=== PATIENT | female | born 1955 | race Caucasian/White ===

== ENCOUNTER 2017-05-09 15:09 | Observation (INO) ==
--- NOTE | 2017-05-09 15:19 | Emergency Department Note ---
Disposition Clinical Impression: Chest pain Qualifiers: Chest pain type: unspecified Qualified Code(s): R07.9 - Chest pain, unspecified Disposition: Admitted As Inpatient Condition: Undetermined Referrals: Lakia Narayanan MD [Primary Care Provider] - Forms: ED Satisfaction Letter, Work/School Release Time of Disposition: 17:18 General Adult HPI - General Chief complaint: ED General Medical Stated complaint: multiple complaints Time Seen by Provider: 05/09/17 15:14 Source: patient, EMS Mode of arrival: EMS Limitations: no limitations Nursing Notes Reviewed: Yes Vital Signs Reviewed: Yes - History of Present Illness HPI Narrative: 61-year-old female with multiple complaints here in the emergency department. The patient states that she is having pain all over, she is having pain in her right upper quadrant epigastrium where she is complaining of a tightness under her right breast. The patient denies any shortness of breath, fevers but does admit to chills. The patient states that her legs hurt, her shoulder hurts, her back hurts. In addition the patient has multiple complaints about many different body systems since an urgent care visit 3 or 4 days ago. The patient is currently seeking a new primary care physician after being dropped from her previous PCP. The patient denies any other complaints at this time. She is resting comfortably in the room with mild elevated blood pressure. She denies any headaches, unilateral weakness. The patient states that she has been fairly tachypneic and stating that she is having some numbness and tingling in bilateral hands. Onset (ago): day(s) (4) Location: other (generalized) Pain Severity: mild Pain Scale: 2 Quality: aching Improves with: nothing Worsens with: nothing Associated symptoms: Reports: chest pain, malaise, nausea/vomiting, weakness Treatments Prior to Arrival: none - Related Data Home Medications Medication Instructions Recorded Confirmed Sulfamethoxazole/Trimeth DS 1 each PO BID 05/09/17 05/09/17 [Bactrim DS] hydroCHLOROthiazide 25 mg PO QAM 05/09/17 05/09/17 [Hydrochlorothiazide] Allergies Allergy/AdvReac Type Severity Reaction Status Date / Time acetaminophen [From Lortab] Allergy Dizziness Verified 11/18/15 16:32 hydrocodone [From Lortab] Allergy Dizziness Verified 11/18/15 16:32 levofloxacin [From Levaquin] Allergy Dizziness Verified 11/18/15 16:32 All systems ED: reviewed and negative except as stated. Constitutional: Reports: chills, weakness. Denies: fever ENT ED: Denies: congestion Cardiovascular: Reports: chest pain. Denies: dyspnea on exertion, edema Respiratory: Reports: dyspnea. Denies: cough, wheezes Gastrointestinal: Reports: abdominal pain. Denies: nausea, vomiting, diarrhea, constipation Genitourinary: Denies: urgency, dysuria Musculoskeletal: Reports: back pain, myalgia. Denies: neck pain, arthralgia Integumentary: Denies: rash Neurological: Reports: weakness. Denies: headache, numbness, paresthesias, confusion Past Medical History - Past Medical History Attestation: Yes The following information was validated with the patient. Source: patient Medical history: Reports: no medical history Surgical history: Reports: non-contributory - Social History Smoking Status: Current every day smoker Smokeless Tobacco Status: No Alcohol use: Reports: none Drug use: Reports: none Physical Exam - General Limitations: no limitations General appearance: alert, in no apparent distress - Head Head exam: atraumatic, normocephalic, normal inspection - Eye Eye exam: Present: normal appearance - ENT ENT exam: normal exam, normal oropharynx, mucous membranes moist - Neck Neck exam: Present: normal inspection, full ROM, trachea midline - Chest Chest inspection: Present: normal inspection, symmetric chest wall rise - Respiratory Respiratory exam: Present: normal lung sounds bilaterally - Cardiovascular Cardiovascular exam: Present: regular rate, normal rhythm, normal heart sounds - Abdominal Exam Abdominal exam: Present: soft, tenderness (Epigastric). Absent: distention, guarding, rebound, rigidity - Extremities Exam Extremities exam: Present: normal inspection, full ROM. Absent: tenderness, pedal edema - Neurological Exam Neurological exam: Present: alert, oriented X3, CN II-XII intact - Expanded Neurological Exam Patient oriented to: Present: person, place, time Speech: Present: fluid speech Cranial nerves: EOM function (II, III, IV, ): Normal, facial sensation (V): Normal, facial palsy (VII): Normal Motor strength - LUE: 5/5 Motor strength - RUE: 5/5 Motor strength - LLE: 5/5 Motor strength - RLE: 5/5 Sensory exam upper extremity: light touch: Normal Sensory exam lower extremity: light touch: Normal Coma Scale Eye Opening: Spontaneous Coma Scale Motor Response: Obeys Commands Coma Scale Verbal Response: Oriented Coma Scale Total: 15 Course - Reevaluation(s) Reevaluation #1: Patient's EKG demonstrated some ST depression noted in the lateral leads. She had nonspecific changes overall. 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 Labs demonstrate a mildly elevated d-dimer but is negative for her age with the 10 times her age role. We will not perform a CTA of the patient's chest. The patient does have some elevated transaminases and is complaining of epigastric tenderness. So we will perform a CT of the patient's abdomen and pelvis with noncontrast. The patient was also noted to be hypokalemic so we will administer IV potassium. This is likely the etiology of her myalgias. Time: 16:11 Vital Signs Temperature 97.8 F 05/09/17 15:15 Pulse Rate 80 05/09/17 15:15 Respiratory Rate 14 05/09/17 15:15 Blood Pressure 0/0 05/09/17 15:15 O2 Sat by Pulse Oximetry 98 05/09/17 15:15 Temperature 97.8 F 05/09/17 15:15 Pulse Rate 85 05/09/17 15:56 Respiratory Rate 13 05/09/17 15:56 Blood Pressure 147/76 05/09/17 15:56 O2 Sat by Pulse Oximetry 95 05/09/17 15:56 Oxygen Delivery Oxygen Delivery Room Air Medical Decision Making - [facility] Narrative Medical decision making narrative: Patient has severe hepatosis. We will admit the patient to the hospitalist at this time, accepted by Dr. Tyler. - Lab Data Lab results reviewed: Yes I reviewed the patient's lab results. Result diagrams: 05/09/17 15:33 05/09/17 15:33 Lab Results 05/09/17 05/09/17 05/09/17 Range/Units 15:25 15:33 15:33 WBC 8.5 (4.3-11.1) K/mcL RBC 5.58 H (3.82-4.97) M/mcL Hgb 16.2 H (11.5-15.4) g/dL Hct 47.3 H (35.3-44.9) % MCV 84.8 (83.0-100.0) fL MCH 29.0 (28.0-33.3) pg MCHC 34.2 (31.6-35.5) g/dL RDW 14.3 (11.5-14.5) % Plt Count 269 (140-400) K/mcL MPV 11.4 (9.4-12.4) fL Immature Gran % 0.4 (0-4) % Seg Neutrophils % 48.1 % Lymphocytes % 38.8 % Monocytes % 8.5 % Eosinophils % 3.4 % Basophils % 0.8 % Neutrophils # 4.1 (1.6-8.9) K/mcL Lymphocytes # 3.3 (0.6-4.6) K/mcL Monocytes # 0.7 (0.0-1.3) K/mcL Eosinophils # 0.3 (0.0-0.6) K/mcL Basophils # 0.1 (0.0-0.2) K/mcL D-Dimer (0-500) ng/mLFEU Sodium (136-145) mEq/L Potassium (3.5-4.5) mEq/L Chloride (98-109) mEq/L Carbon Dioxide (19-29) mEq/L BUN (7-20) mg/dL Creatinine (0.57-1.11) mg/dL Est GFR ( Amer) (> 60) Est GFR (Non-Af Amer) (> 60) BUN/Creatinine Ratio (6-26) Glucose (70-99) mg/dL Calculated Osmolality (280-300) Calcium (8.6-10.8) mg/dL Total Bilirubin (0.2-1.2) mg/dL AST (5-34) Units/L ALT (0-55) Units/L Alkaline Phosphatase (38-126) Units/L Troponin I 0.02 (0-0.03) ng/mL Serum Total Protein (6.0-8.3) g/dL Albumin (3.5-5.0) g/dL Globulin (2.4-3.5) g/dL Albumin/Globulin Ratio (1.1-2.2) Urine Color Yellow (Yellow) Urine Clarity Clear (Clear) Urine pH 6.0 (5.0-8.0) pH Units Ur Specific [place] 1.014 (1.010-1.025) Urine Protein Negative (Neg-Trace) mg/dL Urine Glucose (UA) Normal (Normal) mg/dL Urine Ketones Trace H (Negative) mg/dL Urine Blood Small H (Negative) Urine Nitrite Negative (Negative) Urine Bilirubin Negative (Negative) Urine Urobilinogen Normal (Normal) mg/dL Ur Leukocyte Esterase Negative (Negative) Urine Microscopic RBC 0-3 (0-3) per hpf Urine Microscopic WBC 0-3 (0-3) per hpf Ur Squamous Epith Cells Moderate H (None-Few) per lpf Urine Bacteria None Seen (None-Few) per hpf Hyaline Casts None Seen (None-Few) per lpf Ur Culture Indicated? NO (NO) 05/09/17 05/09/17 Range/Units 15:33 15:33 WBC (4.3-11.1) K/mcL RBC (3.82-4.97) M/mcL Hgb (11.5-15.4) g/dL Hct (35.3-44.9) % MCV (83.0-100.0) fL MCH (28.0-33.3) pg MCHC (31.6-35.5) g/dL RDW (11.5-14.5) % Plt Count (140-400) K/mcL MPV (9.4-12.4) fL Immature Gran % (0-4) % Seg Neutrophils % % Lymphocytes % % Monocytes % % Eosinophils % % Basophils % % Neutrophils # (1.6-8.9) K/mcL Lymphocytes # (0.6-4.6) K/mcL Monocytes # (0.0-1.3) K/mcL Eosinophils # (0.0-0.6) K/mcL Basophils # (0.0-0.2) K/mcL D-Dimer 576 H (0-500) ng/mLFEU Sodium 134 L (136-145) mEq/L Potassium 2.9 L (3.5-4.5) mEq/L Chloride 95 L (98-109) mEq/L Carbon Dioxide 26 (19-29) mEq/L BUN 11 (7-20) mg/dL Creatinine 1.01 (0.57-1.11) mg/dL Est GFR ( Amer) > 60 (> 60) Est GFR (Non-Af Amer) 56 L (> 60) BUN/Creatinine Ratio 11 (6-26) Glucose 95 (70-99) mg/dL Calculated Osmolality 277 L (280-300) Calcium 9.8 (8.6-10.8) mg/dL Total Bilirubin 0.5 (0.2-1.2) mg/dL AST 51 H (5-34) Units/L ALT 66 H (0-55) Units/L Alkaline Phosphatase 102 (38-126) Units/L Troponin I (0-0.03) ng/mL Serum Total Protein 7.9 (6.0-8.3) g/dL Albumin 3.8 (3.5-5.0) g/dL Globulin 4.1 H (2.4-3.5) g/dL Albumin/Globulin Ratio 0.9 L (1.1-2.2) Urine Color (Yellow) Urine Clarity (Clear) Urine pH (5.0-8.0) pH Units Ur Specific [place] (1.010-1.025) Urine Protein (Neg-Trace) mg/dL Urine Glucose (UA) (Normal) mg/dL Urine Ketones (Negative) mg/dL Urine Blood (Negative) Urine Nitrite (Negative) Urine Bilirubin (Negative) Urine Urobilinogen (Normal) mg/dL Ur Leukocyte Esterase (Negative) Urine Microscopic RBC (0-3) per hpf Urine Microscopic WBC (0-3) per hpf Ur Squamous Epith Cells (None-Few) per lpf Urine Bacteria (None-Few) per hpf Hyaline Casts (None-Few) per lpf Ur Culture Indicated? (NO) - Radiology Data Radiology results reviewed: Yes I reviewed the patient's radiology results. - EKG Data EKG #1 EKG attestation: Yes I reviewed and interpreted this EKG. EKG results narrative: Heart rate 76 bpm. PA interval 142 ms. QTC 434 ms. Normal sinus rhythm. No ST elevation but noted ST depression noted in leads aVF, V4, V3, V6. She has flipped T waves that are new on leads V1, V2, V3 through V6. In addition the patient has some nonspecific ST changes throughout.
[2017-05-09 15:40] LABS: Bilirubin,Urine Negative (Negative); Blood,Urine Small (Negative); Clarity,Urine Clear (Clear); Color,Urine Yellow (Yellow); Glucose,Urine (UA) Normal (Normal); Ketones,Urine Trace mg/dL (Negative); Leukocyte Esterase,Urine Negative (Negative); Nitrite,Urine Negative (Negative); Protein,Urine Negative (Neg-Trace); Specific Gravity,Urine 1.014 (1.010-1.025); Urobilinogen,Urine Normal (Normal)
[2017-05-09] MEDS ORDERED: Aspirin 325 MG TABLET PO ONE (15:40)
[2017-05-09 15:42] LABS: Bacteria,Urine None Seen per hpf (None-Few); Hyaline Casts,Urine None Seen per lpf (None-Few); RBC,Urine 0-3 per hpf (0-3); Squamous Epithelial Cell,Urine Moderate per lpf (None-Few); WBC,Urine 0-3 per hpf (0-3)
[2017-05-09] MEDS ORDERED: 0.9 % Sodium Chloride 1,000 ML IVC ONE (15:44)
[2017-05-09 15:49] LABS: Basophils # 0.1 K/mcL (0.0-0.2); Basophils % 0.8 %; Eosinophils # 0.3 K/mcL (0.0-0.6); Eosinophils % 3.4 %; Hematocrit 47.3 % (35.3-44.9); Hemoglobin 16.2 g/dL (11.5-15.4); Immature Granulocytes % 0.4 % (0-4); Lymphocytes # 3.3 K/mcL (0.6-4.6); Lymphocytes % 38.8 %; Mean Corpuscular HGB Conc 34.2 g/dL (31.6-35.5); Mean Corpuscular Volume 84.8 fL (83.0-100.0); Mean Platelet Volume 11.4 fL (9.4-12.4); Monocytes # 0.7 K/mcL (0.0-1.3); Monocytes % 8.5 %; Neutrophils # 4.1 K/mcL (1.6-8.9); Red Blood Count 5.58 M/mcL (3.82-4.97); Red Cell Distribution Width 14.3 % (11.5-14.5); Segmented Neutrophils % 48.1 %
[2017-05-09 15:59] LABS: Alanine Aminotransferase 66 Units/L (0-55); Albumin 3.8 g/dL (3.5-5.0); Albumin/Globulin Ratio 0.9 (1.1-2.2); Alkaline Phosphatase 102 Units/L (38-126); Aspartate Amino Transferase 51 Units/L (5-34); BUN/Creatinine Ratio 11 (6-26); Bilirubin,Total 0.5 mg/dL (0.2-1.2); Blood Urea Nitrogen 11 mg/dL (7-20); Calcium 9.8 mg/dL (8.6-10.8); Carbon Dioxide 26 mEq/L (19-29); Chloride 95 mEq/L (98-109); Globulin 4.1 g/dL (2.4-3.5); Glucose 95 mg/dL (70-99); Osmolality,Calculated 277 (280-300); Potassium 2.9 mEq/L (3.5-4.5); Sodium 134 mEq/L (136-145); Total Protein 7.9 g/dL (6.0-8.3); eGFR For African Americans > 60 (> 60); eGFR For Non-African Americans 56 (> 60)
[2017-05-09 16:36] LABS: Platelet Count 269 K/mcL (140-400)
--- NOTE | 2017-05-09 17:23 | Emergency Department Note ---
START Narrative - START START: I examined this patient and my medical decision-making was reviewed with the Resident Physician. I agree with the documented findings, disposition and treatment plan as described except to the extent set forth below. 61-year-old female presents emergency room for chest pressure and multiple complaints. Workup here revealed some ST segment and T-wave abnormalities in the anterior lateral leads as compared to previous. She has been to having this chest pressure on and off. Her CT scan of her abdomen pelvis is nonacute and she was having some upper abdominal pain and pressure. Plan at this time is to admit for observation secondary to the EKG abnormalities of which could be causing her to have this chest pressure.
[2017-05-09] MEDS ORDERED: 0.9 % Sodium Chloride 1,000 ML ONE ×2 (18:29→20:58)
[2017-05-09] MEDS ORDERED: Naloxone 0.4 MG/ML INJ IVP PRN (23:02)
--- NOTE | 2017-05-09 23:11 | Internal Med History&Physical ---
Date of Encounter: 05/09/17 Time of Encounter: 23:06 Assessment and Plan (1) Atypical chest pain Current visit: Yes Status: Acute trend trop, check TTE does not sound like ACS given related to movement tele, will monitor closely further management pending hospital course (2) Generalized edema Current visit: Yes Status: Acute uncertain etiology check TTE send spot Protein/cr screen check TSH, FT4 (3) Hypokalemia Current visit: Yes Status: Acute K IV supplementation likely 2/2 diuretics check Mg Internal Medicine - H&P: HPI Chief complaint: CP, swelling History of present illness: Ms. Magaña is a 61 year old female who presents for eval for generalized swelling and CP. She tells me that she had been having swelling in her legs, abdo and chest for the last 1 week. This LE swelling is associated with pins/needles/burning of the feet. She was seen at urgent care on sunday where she was prescribed HCTZ and bactrim for empiric UTI therapy ? - has frequency and LUTs that appears chronic. Today, she was sitting in bed and attempted to bend over leading to sharp , "grabbing pain" along the left chest w/o radiation. 11/04, described as sharp lasting minutes. She recalled feeling pre-syncopal and got "real jittery" before onset of CP. Review noted of back pain , trouble sleeping. She has a 42 year smoking hx and has quit smoking 8 days ago. EKG personally reviewed with rate 76, NSR, T-wave flattening CT/CT abd pelvis wo no iv no oral IMPRESSION: No acute intra-abdominal pathology. Severe hepatic steatosis. Colonic diverticulosis, without CT evidence of acute diverticulitis. Appendix is not identified. No secondary CT evidence of acute appendicitis. XR/XR chest 1V portable IMPRESSION: No acute process. Past Med Surg Social Fam HX - Past Medical History Medical history: no medical history Psychiatric history: no psych history - Past Surgical History Surgical History: non-contributory - Social History Smoking Status: Current every day smoker Smokeless Tobacco Status: No Alcohol use: none Drug use: none - Family History Mother Living Status: Cause of : CA Hx Family Cancer: Yes (BREAST) Hx Family Endocrine Disorder: Yes (DM) Internal Medicine - H&P: Meds Sulfamethoxazole/Trimeth DS [Bactrim DS] 1 each PO BID 05/09/17 [History] hydroCHLOROthiazide [Hydrochlorothiazide] 25 mg PO QAM 05/09/17 [History] 3 Allergy/AdvReac Type Severity Reaction Status Date / Time acetaminophen [From Lortab] Allergy Dizziness Verified 11/18/15 16:32 hydrocodone [From Lortab] Allergy Dizziness Verified 11/18/15 16:32 levofloxacin [From Levaquin] Allergy Dizziness Verified 11/18/15 16:32 All Systems PM: A 10-system review of systems was performed and is negative for pertinent findings except as documented above in the HPI. Review of systems: ROS 14 point review of systems reviewed as best as possible given presentation. Pertinent positive or negative as per HPI or otherwise reviewed as negative - Constitutional Vitals: Temp Pulse Resp BP Pulse Ox 98.6 F 71 16 136/77 93 05/09/17 22:46 05/09/17 22:46 05/09/17 22:46 05/09/17 22:46 05/09/17 22:46 Exam: General - AAO x 3 Psych - Appropriate affect/speech. No agitation Eyes - KAYLEE. Eye lids intact. No scleral icterus Neuro - No gross peripheral or central neuro deficitson inspecton Heart - Sinus. RRR. S1 and S2 present. No added HS/murmurs appreciated. No elevated JVD appreciated. Lung - Adequate air entry b/l, No crackles/wheezes appreciated GI - Soft, non-tender. No hepatosplenomegaly/ascites. BS+ - No CVA/suprapubic tenderness or palpable bladder distension Skin - Intact. No rash/petechiae/ecchymosis. Warm extremities. +1 b/l LE edema Internal Med - H&P Results - Labs CBC & Chem 7: 05/09/17 15:33 05/09/17 15:33
[2017-05-10 03:35] LABS: Creatinine,Urine 36 mg/dL
[2017-05-10 06:00] LABS: BUN/Creatinine Ratio 13 (6-26); Blood Urea Nitrogen 10 mg/dL (7-20); Carbon Dioxide 22 mEq/L (19-29); Chloride 108 mEq/L (98-109); Glucose 78 mg/dL (70-99); Magnesium 2.3 mg/dL (1.6-2.6); Osmolality,Calculated 286 (280-300); Sodium 139 mEq/L (136-145); eGFR For African Americans > 60 (> 60); eGFR For Non-African Americans > 60 (> 60)
[2017-05-10 06:02] LABS: Calcium 8.1 mg/dL (8.6-10.8)
[2017-05-10 06:03] LABS: Hemoglobin A1C 5.4 %; Potassium 3.9 mEq/L (3.5-4.5)
[2017-05-10 06:14] LABS: Basophils # 0.1 K/mcL (0.0-0.2); Basophils % 0.8 %; Eosinophils # 0.4 K/mcL (0.0-0.6); Immature Granulocytes % 0.3 % (0-4); Lymphocytes # 2.2 K/mcL (0.6-4.6); Lymphocytes % 36.4 %; Mean Corpuscular HGB Conc 32.7 g/dL (31.6-35.5); Mean Corpuscular Hemoglobin 28.6 pg (28.0-33.3); Mean Corpuscular Volume 87.5 fL (83.0-100.0); Mean Platelet Volume 10.6 fL (9.4-12.4); Monocytes # 0.7 K/mcL (0.0-1.3); Neutrophils # 2.7 K/mcL (1.6-8.9); Platelet Count 295 K/mcL (140-400); Red Blood Count 5.03 M/mcL (3.82-4.97); Red Cell Distribution Width 14.7 % (11.5-14.5); Segmented Neutrophils % 45.5 %
[2017-05-10 06:17] LABS: Hemoglobin 14.4 g/dL (11.5-15.4)
[2017-05-10 06:22] LABS: Thyroid Stimulating Hormone 2.075 mcIU/mL (0.350-4.840)
--- NOTE | 2017-05-10 13:51 | Internal Med Progress Note ---
Date of Encounter: 05/10/17 Time of Encounter: 08:30 - Assessment and plan (1) Vertigo Current Visit: Yes Status: Acute Assessment and plan: Patient reports episodes of room spinning and feeling as if she is going to pass out for 2-3 months prior to presentation. Symptoms occur with movement and at rest. 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 [facility] records requested but not yet received. Check orthostatics, echocardiogram, head/neck MRA. Consider neurology and/or ENT consult depending on clinical course. (2) Chest pain Current Visit: Yes Status: Acute Assessment and plan: Presented with episode of severe chest pain. Now resolved. Serial troponins negative. EKG without acute ST changes. Echo, stress test pending. Monitor on telemetry. D-dimer elevated, Chest CTA pending Qualifiers: Chest pain type: unspecified Qualified Code(s): R07.9 - Chest pain, unspecified (3) Generalized edema Current Visit: Yes Status: Acute Assessment and plan: Patient reports increased and worsening edema from chest to feet over the last week. No previous history of heart failure. Abdominal CT with severe hepatic steatosis. LFTs minimally elevated. Echo, liver ultrasound pending. (4) Hypokalemia Current Visit: Yes Status: Acute Assessment and plan: Likely secondary to GI losses as patient reports 2 days of loose, watery stool prior to presentation. Now resolved. Potassium replaced. Repeat potassium 3.9. Monitor repeat BMP - Subjective Interval history: Seen and examined at bedside. Patient is due to be, information obtained from chart review and patient report. Patient says she came in with concern for lower extremity swelling, chest pain and feeling as if she is going to pass out. Upon further investigation, patient reports sensation of the rooms pending as well as lightheadedness and dizziness. Says she has history of cerebral artery and was told she would need a stent at some point in time. Apparently had workup done at [facility]. Says vertigo, lightheadedness symptoms have been ongoing for the past couple months. Denies chest pain at this time, no shortness of breath. - Constitutional Vitals: Temp Pulse Resp BP Pulse Ox 97.9 F 80 16 125/55 92 05/10/17 11:11 05/10/17 11:11 05/10/17 11:11 05/10/17 11:11 05/10/17 11:11 General appearance: Present: A&O X 3, morbidly obese - Head Head exam: Present: atraumatic, normocephalic - Eye Eye exam: Present: PERRL, conjuntiva pink, sclera anicteric Pupils: Present: PERRL - Neck Neck exam general surgery: Present: supple, trachea midline. Absent: lymphadenopathy - Respiratory Respiratory exam: Present: CTAB. Absent: accessory muscle use, rales, rhonchi, wheezes - Cardiovascular Cardiovascular exam: Present: RRR, +S1, +S2. Absent: diastolic murmur, gallop, rubs, systolic murmur - GI/Abdominal GI/Abdominal exam: Present: normal bowel sounds, soft, no peritoneal signs. Absent: distended, tenderness - Extremities Exam Extremities exam: Present: warm, radial pulses palpable and symmetrical. Absent : calf tenderness, cyanotic, pedal edema - Neurological Exam Neurological exam: Present: CN II-XII intact, oriented X3, no focal deficits. Absent: pronater drift, facial droop, speech deficit - Skin Skin exam: Present: dry, intact Internal Medicine: Result - Labs CBC & Chem 7: 05/10/17 05:31 05/10/17 05:31 Labs: Short CBC 05/10/17 Range/Units 05:31 WBC 6.0 (4.3-11.1) K/mcL Hgb 14.4 D (11.5-15.4) g/dL Hct 44.0 (35.3-44.9) % Plt Count 295 (140-400) K/mcL Neutrophils # 2.7 (1.6-8.9) K/mcL BMP 05/10/17 05:31 Sodium 139 Potassium 3.9 D Chloride 108 Carbon Dioxide 22 BUN 10 Creatinine 0.76 Glucose 78 Calcium 8.1 L D Cardiac Enzymes 05/09/17 05/10/17 05/10/17 Range/Units 23:54 05:31 11:58 Troponin I 0.01 0.01 0.01 (0-0.03) ng/mL - ABG Interpretation ABG results: PT/INR, D-dimer D-Dimer 576 ng/mLFEU (0-500) H 05/09/17 15:33 - Impressions Impressions Echocardiogram 05/10/17 23:05 Impressions: LVEF 65%. Mild left ventricular diastolic dysfunction. Normal right ventricular structure and function. No significant valvular dysfunction. No pulmonary hypertension. Left Ventricular Wall Motion: Rest Echo Findings All wall segments showed normal motion. Findings: Study Quality * Technically adequate exam. ECG Findings * Normal sinus rhythm. Left Ventricle * Normal LV chamber size, wall thickness and function. * Mild left ventricular diastolic dysfunction. * LVEF 65%. Right Ventricle * Normal right ventricular structure and function. Left Atrium * Normal left atrial size. Right Atrium * Normal right atrial size. Aortic Valve * Aortic valve not well visualized. * No aortic regurgitation. * No aortic stenosis. Mitral Valve * Normal mitral valve structure. * No mitral regurgitation. * No mitral stenosis. Tricuspid Valve * Tricuspid valve not well visualized. * Trace tricuspid regurgitation. Pulmonic Valve * Pulmonic valve is not well visualized. * No pulmonic stenosis. * No pulmonic regurgitation. Pulmonary Artery * Pulmonary artery not well visualized. Aorta * Normally sized aortic root. Pericardium * There is no pericardial effusion present. Interatrial Septum * Interatrial septum not well evaluated. IVC * The IVC is not well evaluated. Consult Discharge Plan - Plan Referrals: Lakia Narayanan MD [Primary Care Provider] -
--- NOTE | 2017-05-10 16:39 | Electrocardiograph Report ---
[address] [address] Test Date: 2017-05-09 Pat Name: Margaret Magaña Department: 103 Room: 3B13 Gender: F Upper Shaper: NONA : 1955 Requested By: Rudi Acosta Order Number: [id number] Reading MD: Larissa Owen Measurements Intervals [place] Rate: 76 P: 28 TN: 142 QRS: 5 QRSD: 120 T: 51 QT: 404 QTc: 434 Interpretive Statements SINUS RHYTHM INTRAVENTRICULAR CONDUCTION DELAY ST DEVIATION AND MODERATE T-WAVE ABNORMALITY, CONSIDER ANTEROLATERAL ISCHEMIA ARTIFACT Electronically Signed On 05-10-2017 16:37:24 EST by Larissa Owen
[2017-05-10] MEDS: *HR* Heparin 5,000 UNIT/ML VIAL SQ SCH (21:41)
[2017-05-11 05:06] LABS: Basophils % 0.6 %; Eosinophils # 0.5 K/mcL (0.0-0.6); Eosinophils % 7.3 %; Hematocrit 46.2 % (35.3-44.9); Hemoglobin 14.8 g/dL (11.5-15.4); Immature Granulocytes % 0.4 % (0-4); Lymphocytes # 3.4 K/mcL (0.6-4.6); Lymphocytes % 48.8 %; Mean Corpuscular Hemoglobin 28.6 pg (28.0-33.3); Mean Corpuscular Volume 89.2 fL (83.0-100.0); Mean Platelet Volume 10.5 fL (9.4-12.4); Monocytes # 0.9 K/mcL (0.0-1.3); Monocytes % 12.2 %; Neutrophils # 2.2 K/mcL (1.6-8.9); Platelet Count 308 K/mcL (140-400); Red Blood Count 5.18 M/mcL (3.82-4.97); Segmented Neutrophils % 30.7 %
[2017-05-11 05:23] LABS: BUN/Creatinine Ratio 17 (6-26); Blood Urea Nitrogen 13 mg/dL (7-20); Carbon Dioxide 25 mEq/L (19-29); Chloride 108 mEq/L (98-109); Glucose 116 mg/dL (70-99); Magnesium 2.1 mg/dL (1.6-2.6); Osmolality,Calculated 291 (280-300); Sodium 140 mEq/L (136-145); eGFR For African Americans > 60 (> 60); eGFR For Non-African Americans > 60 (> 60)
[2017-05-11] MEDS: *HR* Heparin 5,000 UNIT/ML VIAL SQ SCH ×2 (05:37→14:19)
[2017-05-11] MEDS ORDERED: Regadenoson 0.4 MG/5 ML SYRINGE IVP ONE (06:25)
[2017-05-11 09:58] LABS: Albumin 3.4 g/dL (3.5-5.0); Albumin/Globulin Ratio 0.9 (1.1-2.2); Bilirubin,Direct 0.2 mg/dL (0.0-0.5); Bilirubin,Indirect 0.2 mg/dL (0.0-1.2); Bilirubin,Total 0.4 mg/dL (0.2-1.2); Globulin 3.8 g/dL (2.4-3.5); Total Protein 7.2 g/dL (6.0-8.3)
--- NOTE | 2017-05-11 10:14 | Gastroenterology Consult Note ---
Date of Encounter: 05/11/17 Time of Encounter: 09:35 - Assessment and plan (1) Hepatic steatosis Current Visit: Yes Status: Acute Assessment and plan: Abdominal CT completed and showed severe hepatic steatosis. RUQ US showed fatty liver vs diffuse hepatocellular disease. Bili is normal, and LFTs slightly elevated. Complete liver work up (AFP, alpha-1 antitrypsin, AMA, ANCA, ceruloplasmin, hepatic panel, F-actin, ferritin, hepatitis profile, AMA, PT/INR, and fibrosis score). Gradual weight loss of 7-10%. Moderate caloric restriction of 500-700 Kcal/day Eliminate or significantly reduce saturated fatty acids and high fructose corn syrup from diet Consider omega-3 fatty acids supplements Consider regular coffee consumption, 2-3 cups/day if can be tolerated Moderate exercise on treadmill, elliptical or in a pool, 4-5/week for 30-45 minutes. Resistance training 3 times/week Statins are safe to use, and also improve portal hypertension and decrease risk of HCC. Control of the components of metabolic syndrome (2) Elevated LFTs Current Visit: Yes Status: Acute Assessment and plan: LFTs are improving. AST 38 from 51 on admission. ALT 57 from 66 on admission. - Time Spent With Patient Total time spent is greater than 50% in coordination of care (as documented) at patient's floor/unit and/or counseling patient: GI History of Present Illness - Data of Consult Patient: new to practice Consult date: 05/11/17 Requesting Physician: Yaima Holcomb CNP - Consult Narrative Reason for consult: fatty liver vs diffuse hepatocellular disease History of present illness: Ms. Magaña is a 61 year old female who presented for evaluation of atypical chest pain and generalized swelling. Her chest pain worsens with movement, which has resolved since admssion. Serial troponins were negative. Abdominal CT completed and showed severe hepatic steatosis. We were consulted to evaluate her fatty liver vs diffuse hepatocellular disease. LFTs slightly elevated on admission with AST 51 and ALT 66. RUQ US showed fatty liver vs diffuse hepatocellular disease. She denies fever, chills, shortness of breath, abdominal pain, nausea, vomiting, melena, or hematochezia. She denies any alcohol use. Procedures: None NSAIDs: None Anticoagulation: None Past Med Surg Social Fam HX - Past Medical History Medical history: no medical history Psychiatric history: no psych history - Past Surgical History Surgical History: non-contributory - Social History Smoking Status: Current every day smoker Smokeless Tobacco Status: No Alcohol use: none Drug use: none - Family History Mother Living Status: Cause of : CA Hx Family Cancer: Yes (BREAST) Hx Family Endocrine Disorder: Yes (DM) - Gastrointestinal Gastrointestinal: Present: as per HPI - Constitutional Constitutional: as per HPI - EENT Eyes: as per HPI Ears: Present: as per HPI Nose, mouth and throat: Present: as per HPI - Cardiovascular Cardiovascular ROS: Present: as per HPI - Respiratory Respiratory IM: Present: as per HPI - Genitourinary Genitourinary: Absent: change in color, Urinary frequency - Neurological ROS Neurological GI: Present: as per HPI - Hematologic/Lymphatic Hematologic/Lymphatic pediatric: Present: as per HPI - Musculoskeletal Musculoskeletal ROS GI: Present: as per HPI - Integumentary Integumentary GI: Present: as per HPI - Psychiatric ROS Psychiatric GI: Present: as per HPI - Endocrine Endocrine IM: Present: as per HPI - Constitutional Vitals: Temp Pulse Resp BP Pulse Ox 97.8 F 74 16 144/69 92 05/11/17 08:54 05/11/17 08:54 05/11/17 08:54 05/11/17 08:54 05/11/17 08:54 General appearance: Present: cooperative, A&O X 3, no acute distress, answers questions appropriately - Head Head exam: Present: atraumatic, normocephalic - Eye Eye exam: Present: normal appearance, sclera anicteric - ENT ENT exam: Present: mucous membranes moist - Neck Neck exam general surgery: Present: normal inspection, trachea midline - Respiratory Respiratory exam: Present: CTAB. Absent: rales, rhonchi - Cardiovascular Cardiovascular exam: Present: RRR, +S1, +S2 - GI/Abdominal GI/Abdominal exam: Present: soft, no peritoneal signs. Absent: distended, firm , guarding, tenderness - Rectal Rectal exam: Present: deferred - Extremities Exam Extremities exam: Present: warm - Neurological Exam Neurological exam: Present: no focal deficits - Psychiatric Psychiatric exam: Present: normal affect, normal mood - Skin Skin exam: Present: dry, intact, normal color, warm Results - Labs CBC & Chem 7: 05/11/17 04:29 05/11/17 04:29 Labs: Last Result Calcium 9.0 mg/dL (8.6-10.8) 05/11/17 04:29 Troponin I 0.01 ng/mL (0-0.03) 05/10/17 11:58 Entire Visit Hgb 14.8 g/dL (11.5-15.4) 05/11/17 04:29 Hct 46.2 % (35.3-44.9) H 05/11/17 04:29 PT 11.0 Seconds (9.4-12.1) 05/11/17 09:27 Total Bilirubin 0.4 mg/dL (0.2-1.2) 05/11/17 09:27 AST 38 Units/L (5-34) H 05/11/17 09:27 ALT 57 Units/L (0-55) H 05/11/17 09:27 - ABG ABG results: PT/INR, D-dimer PT 11.0 Seconds (9.4-12.1) 05/11/17 09:27 D-Dimer 576 ng/mLFEU (0-500) H 05/09/17 15:33 - Impressions Impressions Brain MRI 05/10/17 13:47 IMPRESSION: Chronic occlusion of the left MCA. No acute infarct. Probable cavernoma within the right centrum semiovale. Left WEBBING SEAMER POUND NET branch vessel infundibulum versus microaneurysm. D/ / Rogers Salvador MD / Rogers Salvador MD Interpreting Provider: Rogers Salvador MD Head MRA 05/10/17 13:47 IMPRESSION: Chronic occlusion of the left MCA. No acute infarct. Probable cavernoma within the right centrum semiovale. Left WEBBING SEAMER POUND NET branch vessel infundibulum versus microaneurysm. D/ / Rogers Salvador MD / Rogers Salvador MD Interpreting Provider: Rogers Salvador MD Neck MRA 05/10/17 13:47 IMPRESSION: Chronic occlusion of the left MCA. No acute infarct. Probable cavernoma within the right centrum semiovale. Left WEBBING SEAMER POUND NET branch vessel infundibulum versus microaneurysm. D/ / Rogers Salvador MD / Rogers Salvador MD Interpreting Provider: Rogers Salvador MD Chest CTA 05/10/17 21:00 IMPRESSION: No evidence of pulmonary embolism or acute pulmonary abnormality. Fatty infiltration of liver. Rounded 1 cm density in the upper central right breast which could represent a benign fibroadenoma or cyst. Correlation with mammographic studies is recommended. Evidence granulomatous disease. 2 tiny noncalcified right lung nodules, larger 3 mm. See below recommendation. RECOMMENDATIONS: Fleischner Society guidelines for follow-up and management of incidentally detected pulmonary nodules: Multiple Solid Nodules: Nodule size less than 6 mm In a low-risk patient, no routine follow-up. In a high-risk patient, optional CT at 12 months. - Low risk patients include individuals with minimal or absent history of smoking and other known risk factors. - High risk patients include individuals with a history or smoking or known risk factors. Radiology 2017 http://pubs.rsna.org/doi/full/[email or web address] D/ / Eleni Marinelli Cha, MD / Eleni Marinelli Cha, MD Interpreting Provider: Eleni Marinelli Cha, MD Liver Ultrasound 05/10/17 21:00 IMPRESSION: Fatty liver versus diffuse hepatocellular disease. D/ / Jayden Roach MD / Jayden Roach MD Interpreting Provider: Jayden Roach MD Echocardiogram 05/10/17 23:05 Impressions: LVEF 65%. Mild left ventricular diastolic dysfunction. Normal right ventricular structure and function. No significant valvular dysfunction. No pulmonary hypertension. Left Ventricular Wall Motion: Rest Echo Findings All wall segments showed normal motion. Findings: Study Quality * Technically adequate exam. ECG Findings * Normal sinus rhythm. Left Ventricle * Normal LV chamber size, wall thickness and function. * Mild left ventricular diastolic dysfunction. * LVEF 65%. Right Ventricle * Normal right ventricular structure and function. Left Atrium * Normal left atrial size. Right Atrium * Normal right atrial size. Aortic Valve * Aortic valve not well visualized. * No aortic regurgitation. * No aortic stenosis. Mitral Valve * Normal mitral valve structure. * No mitral regurgitation. * No mitral stenosis. Tricuspid Valve * Tricuspid valve not well visualized. * Trace tricuspid regurgitation. Pulmonic Valve * Pulmonic valve is not well visualized. * No pulmonic stenosis. * No pulmonic regurgitation. Pulmonary Artery * Pulmonary artery not well visualized. Aorta * Normally sized aortic root. Pericardium * There is no pericardial effusion present. Interatrial Septum * Interatrial septum not well evaluated. IVC * The IVC is not well evaluated. Consult Discharge Plan - Plan Referrals: Lakia Narayanan MD [Primary Care Provider] - 05/17/17 9:30 am (with INSURANCE INVESTIGATOR)
[2017-05-11 10:32] LABS: Hepatitis A Antibody IgM Nonreactive (Nonreactive); Hepatitis B Core IgM Nonreactive (Nonreactive); Hepatitis B Surface Antigen Nonreactive (Nonreactive); Hepatitis C Virus Antibody Nonreactive (Nonreactive)
[2017-05-11 15:08] VITALS: BP 136/63
--- NOTE | 2017-05-11 15:39 | Discharge Summary ---
Date of Encounter: 05/11/17 Time of Encounter: 10:00 - Discharge Diagnosis (1) Vertigo Priority: Primary Status: Chronic Comments: per hx. Has seen ENT in the past and has been on meclizine in the past with little effectiveness. Now with recurrent sx's for the last 3-4 months. No ENT available for consult. Does not want to restart meclizine. Follow-up outpatient with ENT (2) Chest pain Priority: Primary Status: Resolved Comments: Presented with one episode of severe chest pain. Now resolved. Chest CTA negative for pulmonary embolism. Serial troponins negative. EKG without acute ST changes. TTE with EF 65%, mild diastolic dysfunction. Stress test negative for ischemia. CP possibly secondary to stress/anxiety. Resolved at time of discharge. Qualifiers: Chest pain type: unspecified Qualified Code(s): R07.9 - Chest pain, unspecified (3) Hepatic steatosis Priority: Primary Status: Acute Comments: symptomatic with edema from ABD to feet. Abdominal CT showed severe hepatic steatosis. RUQ US with fatty liver vs diffuse hepatocellular disease. Evaluated by GI who ordered complete liver work up (AFP, alpha-1 antitrypsin, AMA, ANCA, ceruloplasmin, hepatic panel, F-actin, ferritin, hepatitis profile, AMA, PT/INR , and fibrosis score). GI also recommended gradual weight loss, moderate caloric restriction of 500-700 Kcal/day, eliminate or significantly reduce saturated fatty acids and high fructose corn syrup from diet Could consider omega-3 fatty acids and statin however patient declined at this time. Educated at length on the importance of lifestyle, diet changes. 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 has seen Dr. James past. 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 Infindibulims were identified and could be followed via MRI a CTA scans as an outpatient. Restart ASA. Follow up outpatient with neurology. (5) Hypokalemia Priority: Primary Status: Resolved Comments: Likely secondary to GI losses as patient reports 2 days of loose, watery stool prior to presentation. Potassium normalized with replacement. Resolved at time of discharge. - Discharge Medications Prescriptions: Aspirin 81 mg PO DAILY #30 tab.chew Home Medications: hydroCHLOROthiazide [Hydrochlorothiazide] 25 mg PO QAM 05/09/17 [History] Aspirin 81 mg PO DAILY #30 tab.chew 05/11/17 [Rx] Allergies/Adverse Reactions: 3 Allergy/AdvReac Type Severity Reaction Status Date / Time acetaminophen [From Lortab] Allergy Dizziness Verified 11/18/15 16:32 hydrocodone [From Lortab] Allergy Dizziness Verified 11/18/15 16:32 levofloxacin [From Levaquin] Allergy Dizziness Verified 11/18/15 16:32 Procedures/tests Complete & Pending: Procedures Performed prior 72 hours Category Date Time Status CTA chest [CT angio chest] [CT] Stat Cat Scan 05/10/17 21:00 Completed Liver Ultrasound [US liver] [US] Routine Exams 05/10/17 21:00 Completed NM bessie perf SPECT multi [NM] Routine Exams 05/10/17 13:50 Taken MR angio head wo con [MR] Routine MRI 05/10/17 13:47 Completed MR angio neck wo/w con [MR] Routine MRI 05/10/17 13:47 Completed MR head/brain wo con [MR] Routine MRI 05/10/17 13:47 Completed EV echocardiogram Routine Y 05/10/17 23:05 Completed SP pharm nuclear stress Routine Y 05/11/17 13:50 Completed Date of admission: 05/09/17 17:31 Primary care physician: Lakia Narayanan Consults: 05/11/17 08:34 Consult to Neurology [CONS] Routine Consulting Provider: Neurology [facility] Reason for Consult: prsented with vertigo, dizziness. Brain MRI with Chronic left MCA occlusion, Probable cavernoma and left ADULT AND PEDIATRIC NEUROLOGIST branch vessel infundibulum versus microaneurysm Call Completed: Yes 05/11/17 08:37 Consult to Gastroenterology [CONS] Routine Consulting Provider: Gastroenterology [place] Reason for Consult: Fatty liver versus diffuse hepatocellular disease. Call Completed: Yes Discharging clinician: Yaima Holcomb Anticipated date of discharge: 05/11/17 - Patient Status Disposition: Home, Self-Care Condition: Good Functional capacity at discharge: independent ambulation Overall status at discharge: patient is back to baseline - Discharge Instructions Instructions: Vertigo (DC), Aspirin (By mouth), Non-Alcoholic Fatty Liver Disease (DC) Follow Up With: Lakia Narayanan MD [Primary Care Provider] - 05/17/17 9:30 am (with MELTER HELPER) Additional Instructions: 1. Please call your PCP within 24 hours for the next business day to schedule follow-up appointment 2. Please call Dr. James (neurology) make a follow-up appointment within 1-2 weeks 3. Please call Dr. Coles at [phone] she do not hear from your office within 2 weeks GI recommendations: Gradual weight loss of 7-10%. Moderate caloric restriction of 500-700 Kcal/day Eliminate or significantly reduce saturated fatty acids and high fructose corn syrup from diet Consider omega-3 fatty acids supplements Consider regular coffee consumption, 2-3 cups/day if can be tolerated Moderate exercise on treadmill, elliptical or in a pool, 4-5/week for 30-45 minutes. Resistance training 3 times/week Statins are safe to use, and also improve portal hypertension and decrease risk of hepatic cell carcinoma Interval History: Seen and examined at bedside, patient says she feels better would like to discharge home today. She has known history of vertigo and has seen ENT in the past. Says she is taking meclizine with no effect. She is declining to restart this time. Discussed the importance of lifestyle and dietary changes. She is declining statin at this time. Stressed the importance of daily aspirin and she is agreeable. She is established with Dr. James with neurology and will follow with him outpatient. She has no complaints at time of discharge. She specifically denies vertigo, no lightheadedness, no dizziness, no CP, no SOB Hospital course: See assessment and plan for hospital course - Time Spent with Patient Total time spent providing and/or coordinating discharge services: - Constitutional Vitals: Temp Pulse Resp BP Pulse Ox 97.8 F 66 16 136/63 96 05/11/17 15:07 05/11/17 15:07 05/11/17 15:07 05/11/17 15:07 05/11/17 15:07 General appearance: Present: A&O X 3, morbidly obese - Head Head exam: Present: atraumatic, normocephalic - Eye Eye exam: Present: PERRL, conjuntiva pink, sclera anicteric Pupils: Present: PERRL - Neck Neck exam general surgery: Present: supple, trachea midline. Absent: lymphadenopathy - Respiratory Respiratory exam: Present: CTAB. Absent: accessory muscle use, rales, rhonchi, wheezes - Cardiovascular Cardiovascular exam: Present: RRR, +S1, +S2. Absent: diastolic murmur, gallop, rubs, systolic murmur - GI/Abdominal GI/Abdominal exam: Present: normal bowel sounds, soft, no peritoneal signs. Absent: distended, tenderness - Extremities Exam Extremities exam: Present: warm, radial pulses palpable and symmetrical. Absent : calf tenderness, cyanotic, pedal edema - Neurological Exam Neurological exam: Present: CN II-XII intact, oriented X3, no focal deficits. Absent: pronater drift, facial droop, speech deficit - Skin Skin exam: Present: dry, intact
--- NOTE | 2017-05-11 15:40 | Neurology - Consult Note ---
Date of Encounter: 05/11/17 Time of Encounter: 15:37 Assessment and Plan (1) Vertigo Current Visit: Yes Status: Acute I see no evidence of any impending cerebrovascular events. I believe that the vertigo that she is been experiencing is due to peripheral etiologies. She has a known chronic occlusion of the left middle cerebral artery with established collateral flow. I see no evidence of acute or chronic ischemic change in the posterior fossa. 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 Infindibulims were identified and could be followed via MRI a CTA scans as an outpatient. She does not have recurrent headaches now. She is a smoker, with therefore recommend aspirin 81 mg daily for stroke prevention. I will reevaluate her at your request. History of Present Illness HPI: Ms. Magaña is a 61 year old female with a complicated past medical history including multiple neurologic issues including: Blindness in the right eye, right optic neuritis, chronic left MCA occlusion with collateral flow established, chronic dizziness. Patient is seen for neurologic evaluation at the request of the hospitalist regarding this multiple complaints. She does have complaints of vertigo. She does describe a spinning sensation particularly when laying in bed and rolling over on either side. She also has complaints of paresthesias of both feet, swelling of the feet. She denied any headache, denied nausea vomiting, denied diaphoresis. She noted that she did feel like she was going to pass out which is a bit part of why she came to the hospital. She is not having dizziness at the moment. Complaints of dizziness are not new. She has had similar complaints going back to 2011 when she was under the care of Dr. Ashley. I did ask whether or not she had any shortness of breath or heart palpitations at the time that she was "dizzy" and she confirmed that she did. She denies numbness tingling or weakness face arms and legs. She is actually been previously seen and evaluated at [facility] where identified that she had a chronically occluded left middle cerebral artery. She has had neuroimaging since her admission here. I see no evidence of an acute ischemic process involving the posterior fossa. I see no evidence of chronic ischemic change in the posterior fossa. She does have evidence of chronic scattered ischemic change on the MRI. There is also a small cavernoma in the right centrum semiovale. MRI of the brain reveals vascular anomalies which are likely due to infundibulum. She denies any history of chronic headaches. Past Med Surg Social Fam HX - Past Medical History Medical history: no medical history Psychiatric history: no psych history - Past Surgical History Surgical History: non-contributory - Social History Smoking Status: Current every day smoker Smokeless Tobacco Status: No Alcohol use: none Drug use: none - Family History Mother Living Status: Cause of : CA Hx Family Cancer: Yes (BREAST) Hx Family Endocrine Disorder: Yes (DM) Medications and Allergies Sulfamethoxazole/Trimeth DS [Bactrim DS] 1 each PO BID 05/09/17 [History] hydroCHLOROthiazide [Hydrochlorothiazide] 25 mg PO QAM 05/09/17 [History] 3 Allergy/AdvReac Type Severity Reaction Status Date / Time acetaminophen [From Lortab] Allergy Dizziness Verified 11/18/15 16:32 hydrocodone [From Lortab] Allergy Dizziness Verified 11/18/15 16:32 levofloxacin [From Levaquin] Allergy Dizziness Verified 11/18/15 16:32 All Systems: A 10-system review of systems was performed and is negative for pertinent findings except as documented above in the HPI. Review of Systems: 10 point review of systems is consistent with a history of present illness and is otherwise negative. Physical Examination - Vital Signs Vital Signs: Initial Vital Signs Temp Pulse Resp BP Pulse Ox 97.8 F 80 14 0/0 98 05/09/17 15:15 05/09/17 15:15 05/09/17 15:15 05/09/17 15:15 05/09/17 15:15 - Neurologic Detailed motor examination: full strength in all major muscle groups Detailed sensory examination: intact Reflexes: Biceps: 1+, Triceps: 1+, Brachioradialis: 1+, Patella: 1+, Achilles: 1 + Mental Status Examination: awake, alert, oriented to person, oriented to place, oriented to time, follows commands appropriately, answers questions appropriately, no agnosia, no aphasia, no aproxia Cranial nerve examination: EOMI, corneal reflexes brisk symmetrically, sensory to face intact, mastication intact, no facial asymmetry is present, no dysarthria, hearing is intact symmetrically, soft palate elevates bilaterally upon phonation, gag reflex intact, tongue protrudes midline Cranial Nerve Exam: pupil sluggish to react to light: Right (She is blind in the right eye) Cerebellar examination: no dysmetria, performs finger to nose and heel to evans symmetrically without ataxia, no gait ataxia, no truncal ataxia, no difficulty with rapid alternating movements Results - Laboratory Findings CBC and BMP: 05/11/17 04:29 05/11/17 04:29 Abnormal lab findings: Abnormal lab results RBC 5.18 M/mcL (3.82-4.97) H 05/11/17 04:29 Hct 46.2 % (35.3-44.9) H 05/11/17 04:29 RDW 15.0 % (11.5-14.5) H 05/11/17 04:29 D-Dimer 576 ng/mLFEU (0-500) H 05/09/17 15:33 Glucose 116 mg/dL (70-99) H 05/11/17 04:29 AST 38 Units/L (5-34) H 05/11/17 09:27 ALT 57 Units/L (0-55) H 05/11/17 09:27 Albumin 3.4 g/dL (3.5-5.0) L 05/11/17 09:27 Globulin 3.8 g/dL (2.4-3.5) H 05/11/17 09:27 Albumin/Globulin Ratio 0.9 (1.1-2.2) L 05/11/17 09:27 Urine Ketones Trace mg/dL (Negative) H 05/09/17 15:25 Urine Blood Small (Negative) H 05/09/17 15:25 Ur Squamous Epith Cells Moderate per lpf (None-Few) H 05/09/17 15:25 Consult Discharge Plan - Plan Referrals: Lakia Narayanan MD [Primary Care Provider] - 05/17/17 9:30 am (with WHARFINGER CHIEF)
[2017-05-14 07:40] LABS: Myeloperoxidase Ab 5 AU/mL (0-19); Serine Protease-3 Antibody 0 AU/mL (0-19)
[2017-05-14 07:41] LABS: AFP Tumor Marker Non-Pregnant 2 ng/mL (0-9); ANA IgG by ELISA NONE DETECTED (None Detected); F-Actin (sm muscle) Ab IgG 5 Units (0-19)
[2017-05-14 07:58] LABS: Alpha-1-Antitrypsin 145 mg/dL (90-200); Ceruloplasmin 25 mg/dL (17-54)
== END 2017-05-11 18:21 | disposition home or self-care (01) ==
LOC: EMEROO 15:09 → 3BNU 15:09
PROVIDERS: ADMIT Registered Nurse; ATTEND Registered Nurse